=== PATIENT | male | born 1960 | race Caucasian/White ===

== ENCOUNTER 2023-03-23 10:13 | Inpatient (IN) | payer OTHER ==
[~2023-03-23] VITALS: Ht 172.7 cm; Wt 77.3 kg
[2023-03-23] MEDS ORDERED: METF-446 PO (10:43)
[2023-03-23] MEDS ORDERED: LISI20TA24 PO (10:43)
[2023-03-23] MEDS ORDERED: INSLAN SQ (10:43)
[2023-03-23] MEDS ORDERED: TRAZ-257 PO (10:43)
[2023-03-23] MEDS ORDERED: BACL10TA PO (10:43)
[2023-03-23] MEDS ORDERED: GABA800T9 PO (10:43)
[2023-03-23] MEDS ORDERED: TIMO5DRO18 OU (10:43)
[2023-03-23] MEDS ORDERED: PIOG45TA64 PO (10:43)
[2023-03-23] MEDS ORDERED: SITA100 PO (10:43)
[2023-03-23] MEDS ORDERED: SIMV-43 PO (10:43)
[2023-03-23] MEDS ORDERED: ASPI-1444 PO (10:43)
[2023-03-23] MEDS ORDERED: VANCOMYCIN 1GM/WATER(PEG/NADA) 200 ML IV ONE (12:30)
[2023-03-23 12:48] LABS: BASOPHILS % (AUTO) 0.2 % (0.0-2.0); HEMATOCRIT 40.3 % (41-53); LYMPHOCYTES # (AUTO) 1.7 K/uL (1.0-4.8); MEAN CORPUSCULAR HEMOGLOBIN 25.4 pg (26.0-34.0); MEAN CORPUSCULAR HGB CONC 32.3 G/dL (31.0-37.0); MEAN CORPUSCULAR VOLUME 79 fL (80-100); MONOCYTES # (AUTO) 0.5 K/uL (0.1-1.0); MONOCYTES % (AUTO) 5.7 % (2.0-9.0); NEUTROPHILS # (AUTO) 5.9 K/uL (1.8-7.7); NEUTROPHILS % (AUTO) 72.1 % (40.0-70.0); PLATELET COUNT (AUTO) 263 K/uL (150-450); RED BLOOD CELL COUNT(AUTO) 5.11 MIL/uL (4.50-5.90); RED CELL DISTRIBUTION WIDTH 17.3 % (11.5-14.5)
[2023-03-23 12:55] LABS: ANION GAP 6 mmol/L (8-16); CARBON DIOXIDE 30 mmol/L (22-29); CHLORIDE 103 mmol/L (98-107); CREATININE 0.78 mg/dL (0.60-1.30); GLOMERULAR FILTR. RATE CALC > 60 mL/min (>60); GLUCOSE,RANDOM 148 mg/dL (70-110); POTASSIUM 3.3 mmol/L (3.5-5.1); SODIUM SERUM 139 mmol/L (136-145)
[2023-03-23 13:01] LABS: ALANINE AMINOTRANSFERASE 14 U/L (12-78); ALBUMIN 4.3 g/dL (3.4-5.0); ALKALINE PHOSPHATASE 130 U/L (46-116); ASPARTATE AMINOTRANSFERASE 16 U/L (15-37); BILIRUBIN,TOTAL 0.6 mg/dL (0.1-1.0); C-REACTIVE PROTEIN QUANT 0.29 mg/dL (0.00-0.30); LIPASE 40 U/L (73-393); TOTAL PROTEIN, SERUM 8.8 g/dL (6.4-8.2)
[2023-03-23 13:04] LABS: LACTIC ACID 0.8 mmol/L (0.4-2.0)
[2023-03-23] MEDS ORDERED: POTASSIUM CHLORIDE 10% 40 MEQ/30 ML LIQUID UDCUP PO ONE (13:15)
[2023-03-23 13:22] LABS: COVID AG,FIA SOURCE NASOPHARYNGEAL
[2023-03-23] MEDS ORDERED: ONDANSETRON HCL 4 MG/2 ML VIAL IVP PRN (14:00)
[2023-03-23] MEDS ORDERED: CloNIDine HCL 0.1 MG TABLET PO PRN (14:00)
[2023-03-23] MEDS ORDERED: LISINOPRIL 10 MG TABLET PO SCH (14:00)
[2023-03-23] MEDS ORDERED: DEXTROSE 50%-WATER 25 GM/50 ML SYRINGE IVP PRN (14:00)
[2023-03-23] MEDS ORDERED: GADOTERATE MEGLUMINE 10 MMOL/20 ML VIAL IVP ONE (14:03)
[2023-03-23] MEDS ORDERED: POTASSIUM CHL 10 MEQ/WATER 50 ML IV PRN (14:15)
[2023-03-23] MEDS ORDERED: POTASSIUM CHLORIDE 20 MEQ ER TABLET PO PRN (14:15)
[2023-03-23] MEDS: AmLODIPine BESYLATE 5 MG TABLET PO SCH (14:36)
[2023-03-23 15:28] LABS: ERYTHROCYTE SEDIMENTATION RATE 15 MM/HR (0-15)
[2023-03-23] MEDS: VANCOMYCIN 1GM/WATER(PEG/NADA) 200 ML IV SCH ×2 (16:14→23:52)
[2023-03-23 20:44] VITALS: BP 148/73
[2023-03-23] MEDS: DOCUSATE SODIUM 100 MG CAPSULE PO SCH (21:00)
[2023-03-23] MEDS: INSULIN LISPRO 100 UNITS/ML SQ PRN (21:05)
[2023-03-23] MEDS ORDERED: SODIUM CHLORIDE 0.9% 500 ML IV ONE (23:44)
[2023-03-24 01:21] LABS: GLUCOMETER DEV NAME(LOC) 6N.2B; GLUCOSE,POINT OF CARE 238 MG/DL (70-110)
[2023-03-24 04:56] VITALS: BP 140/71
[2023-03-24] MEDS ORDERED: RINGERS SOLUTION,LACTATED 1,000 ML IV ONE ×2 (06:15→07:00)
[2023-03-24] MEDS ORDERED: BUPIVACAINE HCL/PF 0.25% 30 ML VIAL ONE (07:14)
[2023-03-24] MEDS ORDERED: LIDOCAINE/PF 1% 30 ML VIAL ONE (07:14)
[2023-03-24] MEDS ORDERED: HYDROmorphone HCL 2 MG/ML SYRINGE IVP PRN (07:30)
[2023-03-24] MEDS ORDERED: FentaNYL CITRATE PF 100 MCG/2 ML VIAL IVP PRN (07:30)
[2023-03-24] MEDS ORDERED: MEPERIDINE-PF 25 MG/ML VIAL IVP PRN (07:30)
[2023-03-24 07:41] LABS: GLUCOMETER DEV NAME(LOC) SDS.; GLUCOSE,POINT OF CARE 121 MG/DL (70-110)
[2023-03-24 07:56] LABS: APPEARANCE,URINE CLEAR (CLEAR); BILIRUBIN,URINE NEGATIVE (NEGATIVE); GLUCOSE, URINE (UA) 150-200 mg/dL (NEGATIVE); KETONES,URINE NEGATIVE (NEGATIVE); LEUKOCYTE ESTERASE ,URINE NEGATIVE (NEGATIVE); NITRATE,URINE NEGATIVE (NEGATIVE); OCCULT BLOOD,URINE NEGATIVE (NEGATIVE); PH,URINE 6.5 (5.0-8.0); PROTEIN,URINE TRACE mg/dL (NEGATIVE); SPECIFIC GRAVITIY, URINE 1.024 (1.003-1.030); UROBILINOGEN,URINE <=1.0 mg/dL (<=1.0)
[2023-03-24] MEDS: OXYGEN THERAPY IH SCH ×2 (08:00→21:43)
[2023-03-24 08:23] LABS: BACTERIA,URINE None Seen /HPF (None Seen); RBC,URINE None Seen /HPF (0-2); WBC,URINE None Seen /HPF (0-5)
[2023-03-24] MEDS: LISINOPRIL 20 MG TABLET PO SCH (08:35)
[2023-03-24] MEDS: VANCOMYCIN 1GM/WATER(PEG/NADA) 200 ML IV SCH ×3 (08:57→23:19)
[2023-03-24] MEDS: AmLODIPine BESYLATE 5 MG TABLET PO SCH (08:58)
[2023-03-24] MEDS: ATORVASTATIN CALCIUM 20 MG TABLET PO SCH (08:58)
[2023-03-24] MEDS: DOCUSATE SODIUM 100 MG CAPSULE PO SCH ×2 (08:58→21:43)
[2023-03-24] MEDS: FAMOTIDINE 20 MG TABLET PO SCH (08:58)
[2023-03-24] MEDS ORDERED: ASPIRIN 81 MG CHEWABLE TABLET PO SCH (09:00)
[2023-03-24] MEDS ORDERED: SODIUM CHLORIDE 0.9% 250 ML IV ONE (09:00)
[2023-03-24] MEDS: MetFORMIN HCL 500 MG TABLET PO SCH ×2 (09:01→21:42)
[2023-03-24] MEDS: PIOGLITAZONE HCL 45 MG TABLET PO SCH (09:12)
[2023-03-24] MEDS: SitaGLIPtin PHOSPHATE 100 MG TABLET PO SCH (09:12)
[2023-03-24] MEDS: BACLOFEN 10 MG TABLET PO SCH ×2 (09:13→21:43)
[2023-03-24] MEDS: ASPIRIN 81 MG DR TABLET PO SCH (09:15)
[2023-03-24 10:44] LABS: ANION GAP 4 mmol/L (8-16); CALCIUM, TOTAL 8.6 mg/dL (8.8-10.5); CARBON DIOXIDE 29 mmol/L (22-29); CHLORIDE 106 mmol/L (98-107); CREATININE 0.75 mg/dL (0.60-1.30); GLOMERULAR FILTR. RATE CALC > 60 mL/min (>60); GLUCOSE,RANDOM 191 mg/dL (70-110); POTASSIUM 3.8 mmol/L (3.5-5.1); SODIUM SERUM 139 mmol/L (136-145)
[2023-03-24] MEDS ORDERED: PROPOFOL 1% 20 ML VIAL IVP ONE (12:00)
[2023-03-24] MEDS ORDERED: LIDOCAINE/PF 2% 5 ML VIAL IM ONE (12:00)
[2023-03-24] MEDS: INSULIN LISPRO 100 UNITS/ML SQ PRN ×2 (12:21→21:48)
[2023-03-24 13:22] LABS: GLUCOMETER DEV NAME(LOC) 6N.1; GLUCOSE,POINT OF CARE 177 MG/DL (70-110)
[2023-03-24 15:39] VITALS: BP 171/81
[2023-03-24] MEDS: MORPHINE SULFATE 2 MG/ML SYRINGE IVP PRN (18:18)
[2023-03-24 18:31] LABS: GLUCOMETER DEV NAME(LOC) 6N.2B; GLUCOSE,POINT OF CARE 115 MG/DL (70-110)
[2023-03-24 19:57] VITALS: BP 134/67
[2023-03-24] MEDS: TraZODone HCL 100 MG TABLET PO SCH (21:42)
[2023-03-24] MEDS: SIMVASTATIN 20 MG TABLET PO SCH (21:42)
[2023-03-25 01:06] LABS: GLUCOMETER DEV NAME(LOC) 6N.1; GLUCOSE,POINT OF CARE 147 MG/DL (70-110)
[2023-03-25] MEDS: OxyCODONE HCL/ACETAMINOPHEN 5-325 MG TABLET PO PRN (03:59)
[2023-03-25 04:25] VITALS: BP 137/88
[2023-03-25 06:46] LABS: GLUCOMETER DEV NAME(LOC) 6N.1; GLUCOSE,POINT OF CARE 131 MG/DL (70-110)
[2023-03-25 07:17] LABS: ANION GAP 8 mmol/L (8-16); CALCIUM, TOTAL 8.8 mg/dL (8.8-10.5); CARBON DIOXIDE 28 mmol/L (22-29); CHLORIDE 105 mmol/L (98-107); CREATININE 0.89 mg/dL (0.60-1.30); GLOMERULAR FILTR. RATE CALC > 60 mL/min (>60); GLUCOSE,RANDOM 130 mg/dL (70-110); POTASSIUM 4.7 mmol/L (3.5-5.1); SODIUM SERUM 141 mmol/L (136-145); VANCOMYCIN,RANDOM 39.1 mcg/mL (25.0-50.0)
[2023-03-25 07:59] VITALS: BP 151/75
[2023-03-25] MEDS: OXYGEN THERAPY IH SCH ×2 (08:00→20:58)
[2023-03-25] MEDS: MORPHINE SULFATE 2 MG/ML SYRINGE IVP PRN (09:50)
[2023-03-25] MEDS: MetFORMIN HCL 500 MG TABLET PO SCH ×2 (09:51→20:58)
[2023-03-25] MEDS: PIOGLITAZONE HCL 45 MG TABLET PO SCH (09:52)
[2023-03-25] MEDS: LISINOPRIL 20 MG TABLET PO SCH (09:52)
[2023-03-25] MEDS: DOCUSATE SODIUM 100 MG CAPSULE PO SCH ×2 (09:53→20:58)
[2023-03-25] MEDS: ATORVASTATIN CALCIUM 20 MG TABLET PO SCH (09:53)
[2023-03-25] MEDS: FAMOTIDINE 20 MG TABLET PO SCH (09:54)
[2023-03-25] MEDS: ASPIRIN 81 MG DR TABLET PO SCH (09:54)
[2023-03-25] MEDS: AmLODIPine BESYLATE 5 MG TABLET PO SCH (09:55)
[2023-03-25] MEDS: BACLOFEN 10 MG TABLET PO SCH ×2 (09:55→20:58)
[2023-03-25] MEDS: SitaGLIPtin PHOSPHATE 100 MG TABLET PO SCH (09:56)
[2023-03-25] MEDS ORDERED: MIDAZOLAM HCL 2 MG/2 ML VIAL IVP ONE (12:00)
[2023-03-25] MEDS ORDERED: FentaNYL CITRATE PF 100 MCG/2 ML VIAL IVP ONE (12:00)
[2023-03-25] MEDS: INSULIN LISPRO 100 UNITS/ML SQ PRN (12:20)
[2023-03-25 12:51] LABS: GLUCOMETER DEV NAME(LOC) 6N.2B; GLUCOSE,POINT OF CARE 175 MG/DL (70-110)
[2023-03-25 15:53] VITALS: BP 133/62
[2023-03-25 20:01] LABS: GLUCOMETER DEV NAME(LOC) 6N.1; GLUCOSE,POINT OF CARE 108 MG/DL (70-110)
[2023-03-25 20:08] VITALS: BP 148/67
[2023-03-25] MEDS: VANCOMYCIN 1GM/WATER(PEG/NADA) 200 ML IV SCH (20:58)
[2023-03-25] MEDS: TraZODone HCL 100 MG TABLET PO SCH (20:58)
[2023-03-25] MEDS: SIMVASTATIN 20 MG TABLET PO SCH (20:58)
[2023-03-25 23:51] LABS: GLUCOMETER DEV NAME(LOC) 6N.1; GLUCOSE,POINT OF CARE 110 MG/DL (70-110)
[2023-03-26 04:00] VITALS: BP 138/67
[2023-03-26 07:20] LABS: ANION GAP 8 mmol/L (8-16); CALCIUM, TOTAL 8.5 mg/dL (8.8-10.5); CARBON DIOXIDE 26 mmol/L (22-29); CHLORIDE 101 mmol/L (98-107); GLOMERULAR FILTR. RATE CALC > 60 mL/min (>60); GLUCOSE,RANDOM 117 mg/dL (70-110); POTASSIUM 3.6 mmol/L (3.5-5.1); SODIUM SERUM 135 mmol/L (136-145)
[2023-03-26 07:49] VITALS: BP 145/73
[2023-03-26] MEDS: OXYGEN THERAPY IH SCH ×2 (07:50→20:00)
[2023-03-26] MEDS: VANCOMYCIN 1GM/WATER(PEG/NADA) 200 ML IV SCH ×2 (08:05→19:55)
[2023-03-26] MEDS: MetFORMIN HCL 500 MG TABLET PO SCH ×2 (08:05→20:15)
[2023-03-26] MEDS: SitaGLIPtin PHOSPHATE 100 MG TABLET PO SCH (08:05)
[2023-03-26] MEDS: AmLODIPine BESYLATE 5 MG TABLET PO SCH (08:06)
[2023-03-26] MEDS: ASPIRIN 81 MG DR TABLET PO SCH (08:06)
[2023-03-26] MEDS: ATORVASTATIN CALCIUM 20 MG TABLET PO SCH (08:07)
[2023-03-26] MEDS: DOCUSATE SODIUM 100 MG CAPSULE PO SCH ×2 (08:08→20:15)
[2023-03-26] MEDS: PIOGLITAZONE HCL 45 MG TABLET PO SCH (08:08)
[2023-03-26] MEDS: FAMOTIDINE 20 MG TABLET PO SCH (08:08)
[2023-03-26] MEDS: BACLOFEN 10 MG TABLET PO SCH ×2 (08:09→20:16)
[2023-03-26] MEDS: LISINOPRIL 20 MG TABLET PO SCH (08:09)
[2023-03-26 12:11] LABS: GLUCOMETER DEV NAME(LOC) 6N.2B; GLUCOSE,POINT OF CARE 137 MG/DL (70-110)
[2023-03-26 12:11] LABS: GLUCOMETER DEV NAME(LOC) 6N.1; GLUCOSE,POINT OF CARE 112 MG/DL (70-110)
[2023-03-26 15:22] VITALS: BP 120/63
[2023-03-26] MEDS: INSULIN LISPRO 100 UNITS/ML SQ PRN (17:24)
[2023-03-26] MEDS: CefTRIAXone SODIUM 2 GM in DEXTROSE 5%-WATER 50 ML IV SCH (18:34)
[2023-03-26 20:13] VITALS: BP 141/72
[2023-03-26] MEDS: TraZODone HCL 100 MG TABLET PO SCH (20:15)
[2023-03-26] MEDS: SIMVASTATIN 20 MG TABLET PO SCH (20:16)
[2023-03-26 21:41] LABS: GLUCOMETER DEV NAME(LOC) 6N.2B; GLUCOSE,POINT OF CARE 162 MG/DL (70-110)
[2023-03-26] MEDS: ACETAMINOPHEN 325 MG TABLET PO PRN (22:31)
[2023-03-26] MEDS: MetroNIDAZOLE 500 MG TABLET PO SCH (23:57)
[2023-03-27 04:09] VITALS: BP 141/75
[2023-03-27 05:56] LABS: GLUCOMETER DEV NAME(LOC) 6N.1; GLUCOSE,POINT OF CARE 117 MG/DL (70-110)
[2023-03-27 07:31] VITALS: BP 158/78
[2023-03-27 07:31] LABS: GLUCOMETER DEV NAME(LOC) 6N.1; GLUCOSE,POINT OF CARE 139 MG/DL (70-110)
[2023-03-27 07:51] LABS: ANION GAP 9 mmol/L (8-16); CALCIUM, TOTAL 8.6 mg/dL (8.8-10.5); CARBON DIOXIDE 24 mmol/L (22-29); CHLORIDE 102 mmol/L (98-107); CREATININE 0.78 mg/dL (0.60-1.30); GLOMERULAR FILTR. RATE CALC > 60 mL/min (>60); GLUCOSE,RANDOM 139 mg/dL (70-110); POTASSIUM 3.7 mmol/L (3.5-5.1); SODIUM SERUM 135 mmol/L (136-145); VANCOMYCIN,RANDOM 11.5 mcg/mL (25.0-50.0)
[2023-03-27] MEDS: MetroNIDAZOLE 500 MG TABLET PO SCH ×3 (07:59→16:19)
[2023-03-27] MEDS: VANCOMYCIN 1GM/WATER(PEG/NADA) 200 ML IV SCH ×2 (07:59→08:56)
[2023-03-27] MEDS: OXYGEN THERAPY IH SCH (08:00)
[2023-03-27] MEDS: PIOGLITAZONE HCL 45 MG TABLET PO SCH (09:04)
[2023-03-27] MEDS: FAMOTIDINE 20 MG TABLET PO SCH (09:04)
[2023-03-27] MEDS: ATORVASTATIN CALCIUM 20 MG TABLET PO SCH (09:04)
[2023-03-27] MEDS: ASPIRIN 81 MG DR TABLET PO SCH (09:04)
[2023-03-27] MEDS: AmLODIPine BESYLATE 5 MG TABLET PO SCH ×3 (09:05→20:46)
[2023-03-27] MEDS: DOCUSATE SODIUM 100 MG CAPSULE PO SCH ×2 (09:05→20:43)
[2023-03-27] MEDS: BACLOFEN 10 MG TABLET PO SCH ×2 (09:05→20:43)
[2023-03-27] MEDS: SitaGLIPtin PHOSPHATE 100 MG TABLET PO SCH (09:06)
[2023-03-27] MEDS: MetFORMIN HCL 500 MG TABLET PO SCH ×2 (09:06→20:43)
[2023-03-27] MEDS: LISINOPRIL 20 MG TABLET PO SCH (09:10)
[2023-03-27 12:06] LABS: GLUCOMETER DEV NAME(LOC) 6N.1; GLUCOSE,POINT OF CARE 130 MG/DL (70-110)
[2023-03-27 15:45] LABS: COVID AG,FIA SOURCE NASAL SWAB
[2023-03-27 16:03] VITALS: BP 130/72
[2023-03-27] MEDS: CefTRIAXone SODIUM 2 GM in DEXTROSE 5%-WATER 50 ML IV SCH (17:07)
[2023-03-27] MEDS: INSULIN LISPRO 100 UNITS/ML SQ PRN (17:26)
[2023-03-27 17:41] LABS: GLUCOMETER DEV NAME(LOC) 6N.1; GLUCOSE,POINT OF CARE 147 MG/DL (70-110)
[2023-03-27 19:10] VITALS: BP 109/64
[2023-03-27] MEDS: TraZODone HCL 100 MG TABLET PO SCH (20:43)
[2023-03-27] MEDS: ACETAMINOPHEN 325 MG TABLET PO PRN (20:44)
[2023-03-27] MEDS: VANCOMYCIN HCL 1.25 GM in DEXTROSE 5%-WATER 250 ML IV SCH (20:53)
[2023-03-28] VITALS (11 sets, daily range): BP systolic 112–183; BP diastolic 61–89
[2023-03-28] MEDS: MetroNIDAZOLE 500 MG TABLET PO SCH ×4 (02:50→23:26)
[2023-03-28 03:11] LABS: GLUCOMETER DEV NAME(LOC) 6N.2B; GLUCOSE,POINT OF CARE 125 MG/DL (70-110)
[2023-03-28 06:30] LABS: BASOPHILS % (AUTO) 0.3 % (0.0-2.0); EOSINOPHILS % (AUTO) 0.5 % (1.0-6.0); HEMATOCRIT 37.2 % (41-53); HEMOGLOBIN 12.1 g/dL (13.5-17.5); LYMPHOCYTES % (AUTO) 21.8 % (22.0-44.0); MEAN CORPUSCULAR HEMOGLOBIN 25.6 pg (26.0-34.0); MEAN CORPUSCULAR HGB CONC 32.5 G/dL (31.0-37.0); MEAN CORPUSCULAR VOLUME 79 fL (80-100); MONOCYTES # (AUTO) 0.9 K/uL (0.1-1.0); NEUTROPHILS # (AUTO) 6.3 K/uL (1.8-7.7); NEUTROPHILS % (AUTO) 67.4 % (40.0-70.0); PLATELET COUNT (AUTO) 222 K/uL (150-450); RED BLOOD CELL COUNT(AUTO) 4.72 MIL/uL (4.50-5.90); RED CELL DISTRIBUTION WIDTH 17.6 % (11.5-14.5)
[2023-03-28 06:54] LABS: ANION GAP 12 mmol/L (8-16); CALCIUM, TOTAL 8.3 mg/dL (8.8-10.5); CARBON DIOXIDE 23 mmol/L (22-29); CHLORIDE 102 mmol/L (98-107); CREATININE 1.04 mg/dL (0.60-1.30); GLOMERULAR FILTR. RATE CALC > 60 mL/min (>60); GLUCOSE,RANDOM 147 mg/dL (70-110); POTASSIUM 3.8 mmol/L (3.5-5.1); SODIUM SERUM 137 mmol/L (136-145)
[2023-03-28] MEDS: OXYGEN THERAPY IH SCH ×2 (08:00→20:51)
[2023-03-28] MEDS: ATORVASTATIN CALCIUM 40 MG TABLET PO SCH (08:12)
[2023-03-28] MEDS: VANCOMYCIN HCL 1.25 GM in DEXTROSE 5%-WATER 250 ML IV SCH ×2 (08:14→20:43)
[2023-03-28] MEDS: AmLODIPine BESYLATE 5 MG TABLET PO SCH ×2 (08:48→20:43)
[2023-03-28] MEDS: DOCUSATE SODIUM 100 MG CAPSULE PO SCH ×2 (08:49→20:51)
[2023-03-28] MEDS: LISINOPRIL 20 MG TABLET PO SCH (08:49)
[2023-03-28] MEDS: FAMOTIDINE 20 MG TABLET PO SCH (08:50)
[2023-03-28] MEDS: PIOGLITAZONE HCL 45 MG TABLET PO SCH (09:00)
[2023-03-28] MEDS: BACLOFEN 10 MG TABLET PO SCH ×2 (09:00→20:45)
[2023-03-28] MEDS: SitaGLIPtin PHOSPHATE 100 MG TABLET PO SCH (09:00)
[2023-03-28] MEDS: MetFORMIN HCL 500 MG TABLET PO SCH ×2 (09:00→20:43)
[2023-03-28] MEDS: ASPIRIN 81 MG DR TABLET PO SCH (09:00)
[2023-03-28 11:01] LABS: GLUCOMETER DEV NAME(LOC) 6N.1; GLUCOSE,POINT OF CARE 142 MG/DL (70-110)
[2023-03-28] MEDS: INSULIN LISPRO 100 UNITS/ML SQ PRN ×2 (11:42→21:06)
[2023-03-28] MEDS ORDERED: IODIXANOL 320 MG/ML 150 ML VIAL ONE (13:56)
[2023-03-28] MEDS ORDERED: LIDOCAINE/PF 1% 30 ML VIAL ONE (13:56)
[2023-03-28] MEDS ORDERED: HEPARIN SODIUM 1000 UNITS/NS 1,000 ML ONE (13:56)
[2023-03-28] MEDS ORDERED: IODIXANOL 320 MG/ML 50 ML VIAL ONE (13:56)
[2023-03-28] MEDS ORDERED: SODIUM BICARBONATE 50 MEQ/50 ML VIAL ONE (13:56)
[2023-03-28] MEDS ORDERED: IODIXANOL 320 MG/ML 100 ML VIAL ONE (13:56)
[2023-03-28] MEDS ORDERED: MIDAZOLAM HCL 2 MG/2 ML VIAL ONE (15:05)
[2023-03-28] MEDS ORDERED: FentaNYL CITRATE PF 100 MCG/2 ML VIAL ONE (15:05)
[2023-03-28] MEDS ORDERED: LIDOCAINE 1% 30 ML/SOD BICARB 8.4% 4 ML SQ ONE (15:30)
[2023-03-28] MEDS ORDERED: HEPARIN SODIUM 1000 UNITS/NS 1,000 ML IARTER ONE (15:30)
[2023-03-28] MEDS ORDERED: FentaNYL CITRATE PF 100 MCG/2 ML VIAL IVP ONE ×2 (15:30→16:30)
[2023-03-28] MEDS ORDERED: MIDAZOLAM HCL 2 MG/2 ML VIAL IVP ONE ×2 (15:30→16:30)
[2023-03-28] MEDS ORDERED: IODIXANOL 320 MG/ML 150 ML VIAL IARTER ONE (15:30)
[2023-03-28] MEDS ORDERED: HEPARIN SODIUM,PORCINE 1,000 UNITS/ML 10 ML VIAL IVP ONE ×3 (16:30→17:45)
[2023-03-28] MEDS ORDERED: CLOPIDOGREL BISULFATE 75 MG TABLET PO ONE (17:45)
[2023-03-28] MEDS ORDERED: HEPARIN SODIUM,PORCINE 5,000 UNITS/ML VIAL IVP PRN ×2 (18:00)
[2023-03-28 18:27] LABS: GLUCOMETER DEV NAME(LOC) 6N.1; GLUCOSE,POINT OF CARE 146 MG/DL (70-110)
[2023-03-28] MEDS: CefTRIAXone SODIUM 2 GM in DEXTROSE 5%-WATER 50 ML IV SCH (18:49)
[2023-03-28 19:03] LABS: BASOPHILS % (AUTO) 0.3 % (0.0-2.0); EOSINOPHILS % (AUTO) 0.2 % (1.0-6.0); HEMATOCRIT 39.4 % (41-53); HEMOGLOBIN 12.4 g/dL (13.5-17.5); LYMPHOCYTES # (AUTO) 1.8 K/uL (1.0-4.8); LYMPHOCYTES % (AUTO) 15.4 % (22.0-44.0); MEAN CORPUSCULAR HEMOGLOBIN 24.7 pg (26.0-34.0); MEAN CORPUSCULAR HGB CONC 31.6 G/dL (31.0-37.0); MEAN CORPUSCULAR VOLUME 78 fL (80-100); MONOCYTES # (AUTO) 1.1 K/uL (0.1-1.0); MONOCYTES % (AUTO) 8.9 % (2.0-9.0); NEUTROPHILS # (AUTO) 8.9 K/uL (1.8-7.7); NEUTROPHILS % (AUTO) 75.2 % (40.0-70.0); PLATELET COUNT (AUTO) 237 K/uL (150-450); RED BLOOD CELL COUNT(AUTO) 5.03 MIL/uL (4.50-5.90); RED CELL DISTRIBUTION WIDTH 17.3 % (11.5-14.5)
[2023-03-28 19:39] LABS: INR 1.1 (0.9-1.1); PROTHROMBIN TIME 12.1 SEC (9.4-11.6)
[2023-03-28] MEDS ORDERED: SODIUM CHLORIDE 0.9% 0 ML IV ONE (20:22)
[2023-03-28 20:27] LABS: GLUCOMETER DEV NAME(LOC) 6N.1; GLUCOSE,POINT OF CARE 119 MG/DL (70-110)
[2023-03-28] MEDS: TraZODone HCL 100 MG TABLET PO SCH (20:43)
[2023-03-28] MEDS: OxyCODONE HCL/ACETAMINOPHEN 5-325 MG TABLET PO PRN (20:52)
[2023-03-28] MEDS: MORPHINE SULFATE 2 MG/ML SYRINGE IVP PRN (21:59)
[2023-03-28] MEDS ORDERED: SODIUM CHLORIDE 0.9% 1,000 ML IV ONE (22:00)
[2023-03-28] MEDS: HEPARIN SODIUM 25000 UNITS/D5W 250 ML IV PRN (22:00)
[2023-03-29 01:01] VITALS: BP 126/62
[2023-03-29 02:16] LABS: GLUCOMETER DEV NAME(LOC) 6N.2B; GLUCOSE,POINT OF CARE 146 MG/DL (70-110)
[2023-03-29 03:35] VITALS: BP 129/67
[2023-03-29] MEDS: HEPARIN SODIUM 25000 UNITS/D5W 250 ML IV PRN (04:12)
[2023-03-29 06:44] LABS: BASOPHILS % (AUTO) 0.2 % (0.0-2.0); EOSINOPHILS % (AUTO) 0.2 % (1.0-6.0); HEMATOCRIT 37.1 % (41-53); HEMOGLOBIN 11.8 g/dL (13.5-17.5); LYMPHOCYTES # (AUTO) 1.9 K/uL (1.0-4.8); LYMPHOCYTES % (AUTO) 19.8 % (22.0-44.0); MEAN CORPUSCULAR HEMOGLOBIN 25.1 pg (26.0-34.0); MEAN CORPUSCULAR HGB CONC 31.9 G/dL (31.0-37.0); MEAN CORPUSCULAR VOLUME 79 fL (80-100); MONOCYTES % (AUTO) 10.7 % (2.0-9.0); NEUTROPHILS # (AUTO) 6.6 K/uL (1.8-7.7); NEUTROPHILS % (AUTO) 69.1 % (40.0-70.0); PLATELET COUNT (AUTO) 225 K/uL (150-450); RED BLOOD CELL COUNT(AUTO) 4.71 MIL/uL (4.50-5.90); RED CELL DISTRIBUTION WIDTH 16.9 % (11.5-14.5)
[2023-03-29 06:50] LABS: ANION GAP 7 mmol/L (8-16); CALCIUM, TOTAL 8.8 mg/dL (8.8-10.5); CARBON DIOXIDE 28 mmol/L (22-29); CHLORIDE 102 mmol/L (98-107); CREATININE 0.83 mg/dL (0.60-1.30); GLOMERULAR FILTR. RATE CALC > 60 mL/min (>60); GLUCOSE,RANDOM 140 mg/dL (70-110); POTASSIUM 4.9 mmol/L (3.5-5.1); SODIUM SERUM 137 mmol/L (136-145); VANCOMYCIN,RANDOM 19.6 mcg/mL (25.0-50.0)
[2023-03-29 07:11] LABS: GLUCOMETER DEV NAME(LOC) 6N.1; GLUCOSE,POINT OF CARE 130 MG/DL (70-110)
[2023-03-29] MEDS ORDERED: LIDOCAINE/PF 1% 30 ML VIAL ONE (07:40)
[2023-03-29] MEDS ORDERED: IODIXANOL 320 MG/ML 100 ML VIAL ONE (07:40)
[2023-03-29] MEDS ORDERED: HEPARIN SODIUM 1000 UNITS/NS 1,000 ML ONE (07:40)
[2023-03-29] MEDS ORDERED: SODIUM BICARBONATE 50 MEQ/50 ML VIAL ONE (07:40)
[2023-03-29] MEDS: OXYGEN THERAPY IH SCH (08:00)
[2023-03-29] MEDS: MetroNIDAZOLE 500 MG TABLET PO SCH ×2 (08:00→18:28)
[2023-03-29] MEDS: VANCOMYCIN HCL 1.25 GM in DEXTROSE 5%-WATER 250 ML IV SCH ×2 (08:00→20:10)
[2023-03-29 08:05] VITALS: BP 143/67
[2023-03-29] MEDS ORDERED: FentaNYL CITRATE PF 100 MCG/2 ML VIAL ONE (08:07)
[2023-03-29] MEDS ORDERED: MIDAZOLAM HCL 2 MG/2 ML VIAL ONE (08:07)
[2023-03-29] MEDS ORDERED: HEPARIN SODIUM 1000 UNITS/NS 1,000 ML IARTER ONE (08:30)
[2023-03-29] MEDS ORDERED: IODIXANOL 320 MG/ML 100 ML VIAL IARTER ONE (08:30)
[2023-03-29] MEDS ORDERED: LIDOCAINE 1% 30 ML/SOD BICARB 8.4% 4 ML SQ ONE (08:30)
[2023-03-29] MEDS ORDERED: SODIUM CHLORIDE 0.9% 500 ML IV ONE (08:30)
[2023-03-29] MEDS ORDERED: NITROGLYCERIN 50 MG/D5% WATER 250 ML ONE (08:42)
[2023-03-29] MEDS ORDERED: ADENOSINE 3 MG/ML 2 ML VIAL ONE (08:42)
[2023-03-29] MEDS: BACLOFEN 10 MG TABLET PO SCH ×2 (09:00→20:02)
[2023-03-29] MEDS: AmLODIPine BESYLATE 5 MG TABLET PO SCH ×2 (09:00→20:02)
[2023-03-29] MEDS: DOCUSATE SODIUM 100 MG CAPSULE PO SCH ×2 (09:00→20:01)
[2023-03-29] MEDS ORDERED: HEPARIN SODIUM,PORCINE 1,000 UNITS/ML 10 ML VIAL IVP ONE ×2 (09:00→11:00)
[2023-03-29] MEDS: MetFORMIN HCL 500 MG TABLET PO SCH ×2 (09:00→20:02)
[2023-03-29] MEDS ORDERED: NITROGLYCERIN/D5W 50 MG/250 ML IV BOTTLE IARTER ONE ×2 (09:30)
[2023-03-29] MEDS ORDERED: ADENOSINE 3 MG/ML 2 ML VIAL IVP ONE ×2 (09:30)
[2023-03-29] MEDS ORDERED: ALTEPLASE 2 MG VIAL IVCATH ONE (09:30)
[2023-03-29 10:50] VITALS: BP 137/75
[2023-03-29] MEDS ORDERED: CLOPIDOGREL BISULFATE 75 MG TABLET ONE (10:52)
[2023-03-29] MEDS: CLOPIDOGREL BISULFATE 75 MG TABLET PO SCH (10:53)
[2023-03-29 12:11] LABS: GLUCOMETER DEV NAME(LOC) 6N.2B; GLUCOSE,POINT OF CARE 145 MG/DL (70-110)
[2023-03-29] MEDS: MORPHINE SULFATE 2 MG/ML SYRINGE IVP PRN (15:28)
[2023-03-29] MEDS: ATORVASTATIN CALCIUM 40 MG TABLET PO SCH (15:28)
[2023-03-29] MEDS: FAMOTIDINE 20 MG TABLET PO SCH (15:28)
[2023-03-29] MEDS: SitaGLIPtin PHOSPHATE 100 MG TABLET PO SCH (15:29)
[2023-03-29] MEDS: ASPIRIN 81 MG DR TABLET PO SCH (15:29)
[2023-03-29 15:30] VITALS: BP 158/79
[2023-03-29] MEDS: LISINOPRIL 20 MG TABLET PO SCH (15:30)
[2023-03-29] MEDS: PIOGLITAZONE HCL 45 MG TABLET PO SCH (15:31)
[2023-03-29] MEDS: CefTRIAXone SODIUM 2 GM in DEXTROSE 5%-WATER 50 ML IV SCH (16:58)
[2023-03-29] MEDS: INSULIN LISPRO 100 UNITS/ML SQ PRN (17:57)
[2023-03-29] MEDS: TraZODone HCL 100 MG TABLET PO SCH (20:01)
[2023-03-29] MEDS: OxyCODONE HCL/ACETAMINOPHEN 5-325 MG TABLET PO PRN (20:02)
[2023-03-29 20:05] VITALS: BP 120/66
[2023-03-29 21:26] LABS: GLUCOMETER DEV NAME(LOC) 6N.2B; GLUCOSE,POINT OF CARE 205 MG/DL (70-110)
[2023-03-29 21:27] LABS: GLUCOMETER DEV NAME(LOC) 6N.2B; GLUCOSE,POINT OF CARE 89 MG/DL (70-110)
[2023-03-30] MEDS: MetroNIDAZOLE 500 MG TABLET PO SCH ×4 (00:52→23:25)
[2023-03-30 05:05] VITALS: BP 120/70
[2023-03-30 07:20] LABS: BASOPHILS % (AUTO) 0.2 % (0.0-2.0); EOSINOPHILS % (AUTO) 0.4 % (1.0-6.0); HEMATOCRIT 37.5 % (41-53); LYMPHOCYTES # (AUTO) 1.4 K/uL (1.0-4.8); MEAN CORPUSCULAR HEMOGLOBIN 25.2 pg (26.0-34.0); MEAN CORPUSCULAR HGB CONC 32.1 G/dL (31.0-37.0); MEAN CORPUSCULAR VOLUME 79 fL (80-100); MONOCYTES # (AUTO) 1.1 K/uL (0.1-1.0); MONOCYTES % (AUTO) 9.6 % (2.0-9.0); NEUTROPHILS # (AUTO) 8.9 K/uL (1.8-7.7); NEUTROPHILS % (AUTO) 77.8 % (40.0-70.0); PLATELET COUNT (AUTO) 239 K/uL (150-450); RED BLOOD CELL COUNT(AUTO) 4.77 MIL/uL (4.50-5.90); RED CELL DISTRIBUTION WIDTH 17.6 % (11.5-14.5)
[2023-03-30 07:32] LABS: ALANINE AMINOTRANSFERASE 15 U/L (12-78); ALBUMIN 3.4 g/dL (3.4-5.0); ALKALINE PHOSPHATASE 84 U/L (46-116); ANION GAP 11 mmol/L (8-16); ASPARTATE AMINOTRANSFERASE 20 U/L (15-37); BILIRUBIN,TOTAL 0.5 mg/dL (0.1-1.0); CALCIUM, TOTAL 8.6 mg/dL (8.8-10.5); CARBON DIOXIDE 25 mmol/L (22-29); CHLORIDE 100 mmol/L (98-107); CREATININE 0.95 mg/dL (0.60-1.30); GLOMERULAR FILTR. RATE CALC > 60 mL/min (>60); GLUCOSE,RANDOM 146 mg/dL (70-110); POTASSIUM 4.3 mmol/L (3.5-5.1); SODIUM SERUM 136 mmol/L (136-145); TOTAL PROTEIN, SERUM 7.3 g/dL (6.4-8.2)
[2023-03-30] MEDS: OXYGEN THERAPY IH SCH (08:00)
[2023-03-30 08:03] VITALS: BP 116/57
[2023-03-30 08:11] LABS: GLUCOMETER DEV NAME(LOC) 6N.2B; GLUCOSE,POINT OF CARE 138 MG/DL (70-110)
[2023-03-30] MEDS: VANCOMYCIN HCL 1.25 GM in DEXTROSE 5%-WATER 250 ML IV SCH ×2 (08:15→20:00)
[2023-03-30] MEDS: MetFORMIN HCL 500 MG TABLET PO SCH ×2 (08:27→22:01)
[2023-03-30] MEDS: SitaGLIPtin PHOSPHATE 100 MG TABLET PO SCH (08:27)
[2023-03-30] MEDS: PIOGLITAZONE HCL 45 MG TABLET PO SCH (08:27)
[2023-03-30] MEDS: CLOPIDOGREL BISULFATE 75 MG TABLET PO SCH (08:28)
[2023-03-30] MEDS: FAMOTIDINE 20 MG TABLET PO SCH (08:28)
[2023-03-30] MEDS: AmLODIPine BESYLATE 5 MG TABLET PO SCH ×2 (08:28→22:01)
[2023-03-30] MEDS: ASPIRIN 81 MG DR TABLET PO SCH (08:28)
[2023-03-30] MEDS: DOCUSATE SODIUM 100 MG CAPSULE PO SCH ×2 (08:28→22:01)
[2023-03-30] MEDS: BACLOFEN 10 MG TABLET PO SCH ×2 (08:29→22:01)
[2023-03-30] MEDS: LISINOPRIL 20 MG TABLET PO SCH (08:30)
[2023-03-30] MEDS: ATORVASTATIN CALCIUM 40 MG TABLET PO SCH (08:30)
[2023-03-30] MEDS: INSULIN LISPRO 100 UNITS/ML SQ PRN ×2 (11:43→20:54)
[2023-03-30 12:36] LABS: GLUCOMETER DEV NAME(LOC) 6N.1; GLUCOSE,POINT OF CARE 194 MG/DL (70-110)
[2023-03-30 16:27] VITALS: BP 118/62
[2023-03-30] MEDS: CefTRIAXone SODIUM 2 GM in DEXTROSE 5%-WATER 50 ML IV SCH (16:39)
[2023-03-30 18:51] LABS: GLUCOMETER DEV NAME(LOC) 6N.2B; GLUCOSE,POINT OF CARE 132 MG/DL (70-110)
[2023-03-30 19:57] VITALS: BP 127/63
[2023-03-30] MEDS: TraZODone HCL 100 MG TABLET PO SCH (22:01)
[2023-03-31 04:12] VITALS: BP 103/61
[2023-03-31 05:01] LABS: GLUCOMETER DEV NAME(LOC) 6N.2B; GLUCOSE,POINT OF CARE 147 MG/DL (70-110)
[2023-03-31] MEDS: INSULIN LISPRO 100 UNITS/ML SQ PRN ×4 (05:29→21:22)
[2023-03-31 07:59] LABS: CALCIUM, TOTAL 8.1 mg/dL (8.8-10.5); CREATININE 1.25 mg/dL (0.60-1.30); POTASSIUM 3.6 mmol/L (3.5-5.1)
[2023-03-31] MEDS: OXYGEN THERAPY IH SCH ×2 (08:00→20:00)
[2023-03-31] MEDS: VANCOMYCIN HCL 1.25 GM in DEXTROSE 5%-WATER 250 ML IV SCH ×2 (08:04→19:54)
[2023-03-31 08:06] LABS: GLUCOMETER DEV NAME(LOC) 6N.1; GLUCOSE,POINT OF CARE 146 MG/DL (70-110)
[2023-03-31 08:09] VITALS: BP 107/54
[2023-03-31] MEDS: SitaGLIPtin PHOSPHATE 100 MG TABLET PO SCH (08:50)
[2023-03-31] MEDS: AmLODIPine BESYLATE 5 MG TABLET PO SCH ×2 (08:51→21:15)
[2023-03-31] MEDS: CLOPIDOGREL BISULFATE 75 MG TABLET PO SCH (08:51)
[2023-03-31] MEDS: BACLOFEN 10 MG TABLET PO SCH ×2 (08:51→21:15)
[2023-03-31] MEDS: MetroNIDAZOLE 500 MG TABLET PO SCH ×2 (08:51→16:51)
[2023-03-31] MEDS: PIOGLITAZONE HCL 45 MG TABLET PO SCH (08:51)
[2023-03-31] MEDS: MetFORMIN HCL 500 MG TABLET PO SCH ×2 (08:51→21:14)
[2023-03-31] MEDS: ASPIRIN 81 MG DR TABLET PO SCH (08:51)
[2023-03-31] MEDS: ATORVASTATIN CALCIUM 40 MG TABLET PO SCH (08:52)
[2023-03-31] MEDS: FAMOTIDINE 20 MG TABLET PO SCH (08:52)
[2023-03-31] MEDS: DOCUSATE SODIUM 100 MG CAPSULE PO SCH ×2 (08:52→21:15)
[2023-03-31] MEDS ORDERED: SODIUM CHLORIDE 0.9% 1,000 ML IV ONE (09:45)
[2023-03-31 12:42] LABS: GLUCOMETER DEV NAME(LOC) 6N.2B; GLUCOSE,POINT OF CARE 182 MG/DL (70-110)
[2023-03-31 15:27] VITALS: BP 112/77
[2023-03-31] MEDS: CefTRIAXone SODIUM 2 GM in DEXTROSE 5%-WATER 50 ML IV SCH (16:51)
[2023-03-31 20:26] LABS: GLUCOMETER DEV NAME(LOC) 6N.1; GLUCOSE,POINT OF CARE 177 MG/DL (70-110)
[2023-03-31 20:40] VITALS: BP 118/63
[2023-03-31] MEDS: LISINOPRIL 20 MG TABLET PO SCH (21:15)
[2023-03-31] MEDS: TraZODone HCL 100 MG TABLET PO SCH (21:15)
[2023-03-31 23:31] LABS: GLUCOMETER DEV NAME(LOC) 6N.1; GLUCOSE,POINT OF CARE 174 MG/DL (70-110)
[2023-04-01] MEDS: MetroNIDAZOLE 500 MG TABLET PO SCH ×3 (00:06→15:58)
[2023-04-01 05:16] VITALS: BP 128/57
[2023-04-01 06:57] LABS: GLUCOMETER DEV NAME(LOC) 6N.1; GLUCOSE,POINT OF CARE 139 MG/DL (70-110)
[2023-04-01 07:52] LABS: CALCIUM, TOTAL 8.3 mg/dL (8.8-10.5); CREATININE 1.28 mg/dL (0.60-1.30); POTASSIUM 3.6 mmol/L (3.5-5.1); VANCOMYCIN,RANDOM 25.8 mcg/mL (25.0-50.0)
[2023-04-01] MEDS: OXYGEN THERAPY IH SCH (08:00)
[2023-04-01] MEDS: MetFORMIN HCL 500 MG TABLET PO SCH ×2 (08:35→20:40)
[2023-04-01] MEDS: AmLODIPine BESYLATE 5 MG TABLET PO SCH ×2 (08:35→20:40)
[2023-04-01] MEDS: VANCOMYCIN HCL 1.25 GM in DEXTROSE 5%-WATER 250 ML IV SCH (08:35)
[2023-04-01] MEDS: ASPIRIN 81 MG DR TABLET PO SCH (08:36)
[2023-04-01] MEDS: FAMOTIDINE 20 MG TABLET PO SCH (08:36)
[2023-04-01] MEDS: PIOGLITAZONE HCL 45 MG TABLET PO SCH (08:36)
[2023-04-01] MEDS: SitaGLIPtin PHOSPHATE 100 MG TABLET PO SCH (08:36)
[2023-04-01] MEDS: ATORVASTATIN CALCIUM 40 MG TABLET PO SCH (08:36)
[2023-04-01] MEDS: BACLOFEN 10 MG TABLET PO SCH ×2 (08:37→20:39)
[2023-04-01] MEDS: DOCUSATE SODIUM 100 MG CAPSULE PO SCH ×2 (08:37→20:39)
[2023-04-01] MEDS: CLOPIDOGREL BISULFATE 75 MG TABLET PO SCH (08:37)
[2023-04-01 11:41] LABS: GLUCOMETER DEV NAME(LOC) 6N.1; GLUCOSE,POINT OF CARE 186 MG/DL (70-110)
[2023-04-01] MEDS: INSULIN LISPRO 100 UNITS/ML SQ PRN ×2 (11:54→17:41)
[2023-04-01] MEDS: OxyCODONE HCL/ACETAMINOPHEN 5-325 MG TABLET PO PRN (13:10)
[2023-04-01 15:42] VITALS: BP 99/64
[2023-04-01] MEDS: CefTRIAXone SODIUM 2 GM in DEXTROSE 5%-WATER 50 ML IV SCH (15:58)
[2023-04-01 17:01] LABS: GLUCOMETER DEV NAME(LOC) 6N.2B; GLUCOSE,POINT OF CARE 164 MG/DL (70-110)
[2023-04-01 19:21] VITALS: BP 123/68
[2023-04-01] MEDS: LISINOPRIL 20 MG TABLET PO SCH (20:39)
[2023-04-01] MEDS: TraZODone HCL 100 MG TABLET PO SCH (20:40)
[2023-04-02] MEDS: MetroNIDAZOLE 500 MG TABLET PO SCH ×3 (00:14→15:50)
[2023-04-02 00:51] LABS: GLUCOMETER DEV NAME(LOC) 6N.1; GLUCOSE,POINT OF CARE 104 MG/DL (70-110)
[2023-04-02 04:15] VITALS: BP 121/59
[2023-04-02] MEDS: INSULIN LISPRO 100 UNITS/ML SQ PRN ×2 (05:55→11:28)
[2023-04-02 06:16] LABS: GLUCOMETER DEV NAME(LOC) 6N.2B; GLUCOSE,POINT OF CARE 147 MG/DL (70-110)
[2023-04-02 07:53] LABS: BASOPHILS % (AUTO) 0.4 % (0.0-2.0); EOSINOPHILS % (AUTO) 0.9 % (1.0-6.0); HEMATOCRIT 32.1 % (41-53); HEMOGLOBIN 10.4 g/dL (13.5-17.5); LYMPHOCYTES # (AUTO) 1.5 K/uL (1.0-4.8); LYMPHOCYTES % (AUTO) 16.1 % (22.0-44.0); MEAN CORPUSCULAR HEMOGLOBIN 25.4 pg (26.0-34.0); MEAN CORPUSCULAR HGB CONC 32.6 G/dL (31.0-37.0); MEAN CORPUSCULAR VOLUME 78 fL (80-100); MONOCYTES # (AUTO) 0.8 K/uL (0.1-1.0); MONOCYTES % (AUTO) 9.2 % (2.0-9.0); NEUTROPHILS # (AUTO) 6.8 K/uL (1.8-7.7); NEUTROPHILS % (AUTO) 73.4 % (40.0-70.0); PLATELET COUNT (AUTO) 221 K/uL (150-450); RED BLOOD CELL COUNT(AUTO) 4.11 MIL/uL (4.50-5.90); RED CELL DISTRIBUTION WIDTH 17.9 % (11.5-14.5)
[2023-04-02] MEDS: OXYGEN THERAPY IH SCH ×2 (08:00→20:00)
[2023-04-02 08:04] LABS: CALCIUM, TOTAL 8.5 mg/dL (8.8-10.5); CREATININE 1.38 mg/dL (0.60-1.30); POTASSIUM 3.6 mmol/L (3.5-5.1)
[2023-04-02 08:15] VITALS: BP 100/60
[2023-04-02] MEDS: DOCUSATE SODIUM 100 MG CAPSULE PO SCH ×2 (08:20→20:20)
[2023-04-02] MEDS: MetFORMIN HCL 500 MG TABLET PO SCH ×2 (08:20→20:18)
[2023-04-02] MEDS: ATORVASTATIN CALCIUM 40 MG TABLET PO SCH (08:20)
[2023-04-02] MEDS: APIXABAN 5 MG TABLET PO SCH ×2 (08:21→20:20)
[2023-04-02] MEDS: PIOGLITAZONE HCL 45 MG TABLET PO SCH (08:21)
[2023-04-02] MEDS: VANCOMYCIN 1GM/WATER(PEG/NADA) 200 ML IV SCH ×2 (08:21→20:18)
[2023-04-02] MEDS: SitaGLIPtin PHOSPHATE 100 MG TABLET PO SCH (08:22)
[2023-04-02] MEDS: BACLOFEN 10 MG TABLET PO SCH ×2 (08:22→20:19)
[2023-04-02] MEDS: AmLODIPine BESYLATE 5 MG TABLET PO SCH ×2 (09:00→20:18)
[2023-04-02] MEDS: FAMOTIDINE 20 MG TABLET PO SCH (10:25)
[2023-04-02] MEDS: SODIUM CHLORIDE 0.9% 1,000 ML IV SCH (10:25)
[2023-04-02 14:56] LABS: GLUCOMETER DEV NAME(LOC) 6N.1; GLUCOSE,POINT OF CARE 156 MG/DL (70-110)
[2023-04-02] MEDS: CefTRIAXone SODIUM 2 GM in DEXTROSE 5%-WATER 50 ML IV SCH (15:50)
[2023-04-02 16:30] VITALS: BP 132/69
[2023-04-02 19:01] LABS: GLUCOMETER DEV NAME(LOC) 6N.1; GLUCOSE,POINT OF CARE 116 MG/DL (70-110)
[2023-04-02 19:29] VITALS: BP 128/72
[2023-04-02] MEDS: TraZODone HCL 100 MG TABLET PO SCH (20:18)
[2023-04-02] MEDS: LISINOPRIL 20 MG TABLET PO SCH (20:19)
[2023-04-02 21:47] LABS: GLUCOMETER DEV NAME(LOC) 6N.2B; GLUCOSE,POINT OF CARE 138 MG/DL (70-110)
[2023-04-03] MEDS: MetroNIDAZOLE 500 MG TABLET PO SCH ×3 (00:09→17:03)
[2023-04-03 04:21] VITALS: BP 134/78
[2023-04-03] MEDS: SODIUM CHLORIDE 0.9% 1,000 ML IV SCH (04:54)
[2023-04-03 05:56] LABS: GLUCOMETER DEV NAME(LOC) 6S.1B; GLUCOSE,POINT OF CARE 116 MG/DL (70-110)
[2023-04-03 07:27] VITALS: BP 143/67
[2023-04-03 07:52] LABS: ANION GAP 9 mmol/L (8-16); CALCIUM, TOTAL 8.2 mg/dL (8.8-10.5); CARBON DIOXIDE 22 mmol/L (22-29); CHLORIDE 104 mmol/L (98-107); CREATININE 1.15 mg/dL (0.60-1.30); GLOMERULAR FILTR. RATE CALC > 60 mL/min (>60); GLUCOSE,RANDOM 122 mg/dL (70-110); POTASSIUM 3.5 mmol/L (3.5-5.1); SODIUM SERUM 135 mmol/L (136-145)
[2023-04-03] MEDS: VANCOMYCIN 1GM/WATER(PEG/NADA) 200 ML IV SCH ×2 (08:34→20:08)
[2023-04-03] MEDS: PIOGLITAZONE HCL 45 MG TABLET PO SCH (08:36)
[2023-04-03] MEDS: MetFORMIN HCL 500 MG TABLET PO SCH ×2 (08:36→20:20)
[2023-04-03] MEDS: AmLODIPine BESYLATE 5 MG TABLET PO SCH ×2 (08:36→20:20)
[2023-04-03] MEDS: ATORVASTATIN CALCIUM 40 MG TABLET PO SCH (08:36)
[2023-04-03] MEDS: FAMOTIDINE 20 MG TABLET PO SCH (08:36)
[2023-04-03] MEDS: DOCUSATE SODIUM 100 MG CAPSULE PO SCH ×2 (08:36→21:00)
[2023-04-03] MEDS: BACLOFEN 10 MG TABLET PO SCH ×2 (08:36→20:19)
[2023-04-03] MEDS: SitaGLIPtin PHOSPHATE 100 MG TABLET PO SCH (08:37)
[2023-04-03] MEDS: APIXABAN 5 MG TABLET PO SCH ×2 (08:37→20:20)
[2023-04-03 15:47] VITALS: BP 128/62
[2023-04-03 16:21] VITALS: BP 132/67
[2023-04-03] MEDS: CefTRIAXone SODIUM 2 GM in DEXTROSE 5%-WATER 50 ML IV SCH (17:03)
[2023-04-03 18:31] LABS: GLUCOMETER DEV NAME(LOC) 6N.1; GLUCOSE,POINT OF CARE 127 MG/DL (70-110)
[2023-04-03 18:31] LABS: GLUCOMETER DEV NAME(LOC) 6S.1B; GLUCOSE,POINT OF CARE 122 MG/DL (70-110)
[2023-04-03 19:46] VITALS: BP 115/51
[2023-04-03] MEDS: TraZODone HCL 100 MG TABLET PO SCH (20:19)
[2023-04-03] MEDS: INSULIN LISPRO 100 UNITS/ML SQ PRN (20:19)
[2023-04-03] MEDS: LISINOPRIL 20 MG TABLET PO SCH (20:20)
[2023-04-03 23:36] LABS: GLUCOMETER DEV NAME(LOC) 6S.1B; GLUCOSE,POINT OF CARE 182 MG/DL (70-110)
[2023-04-04] MEDS: MetroNIDAZOLE 500 MG TABLET PO SCH ×2 (00:08→10:22)
[2023-04-04 04:15] VITALS: BP 135/71
[2023-04-04 06:51] LABS: GLUCOMETER DEV NAME(LOC) 6N.1; GLUCOSE,POINT OF CARE 110 MG/DL (70-110)
[2023-04-04 07:23] VITALS: BP 132/71
[2023-04-04] MEDS: VANCOMYCIN 1GM/WATER(PEG/NADA) 200 ML IV SCH (07:45)
[2023-04-04] MEDS: DOCUSATE SODIUM 100 MG CAPSULE PO SCH (07:51)
[2023-04-04 08:10] LABS: ANION GAP 12 mmol/L (8-16); CALCIUM, TOTAL 8.3 mg/dL (8.8-10.5); CARBON DIOXIDE 21 mmol/L (22-29); CHLORIDE 105 mmol/L (98-107); CREATININE 1.06 mg/dL (0.60-1.30); GLOMERULAR FILTR. RATE CALC > 60 mL/min (>60); GLUCOSE,RANDOM 110 mg/dL (70-110); POTASSIUM 3.5 mmol/L (3.5-5.1); SODIUM SERUM 138 mmol/L (136-145)
[2023-04-04] MEDS: SitaGLIPtin PHOSPHATE 100 MG TABLET PO SCH (10:20)
[2023-04-04] MEDS: PIOGLITAZONE HCL 45 MG TABLET PO SCH (10:20)
[2023-04-04] MEDS: BACLOFEN 10 MG TABLET PO SCH (10:21)
[2023-04-04] MEDS: APIXABAN 5 MG TABLET PO SCH (10:21)
[2023-04-04] MEDS: MetFORMIN HCL 500 MG TABLET PO SCH (10:21)
[2023-04-04] MEDS: FAMOTIDINE 20 MG TABLET PO SCH (10:21)
[2023-04-04] MEDS: AmLODIPine BESYLATE 5 MG TABLET PO SCH (10:22)
[2023-04-04] MEDS: ATORVASTATIN CALCIUM 40 MG TABLET PO SCH (10:22)
[2023-04-04] MEDS: OxyCODONE HCL/ACETAMINOPHEN 5-325 MG TABLET PO PRN (13:45)
[2023-04-04] MEDS ORDERED: APIX5TAB PO ×3 (14:15→14:27)
[2023-04-04] MEDS ORDERED: FAMO20TA8 PO (14:25)
[2023-04-04 18:21] LABS: GLUCOMETER DEV NAME(LOC) 6N.2B; GLUCOSE,POINT OF CARE 128 MG/DL (70-110)
[2023-04-05] MEDS ORDERED: VANCOMYCIN HCL 750 MG in DEXTROSE 5%-WATER 250 ML IV SCH (08:00)
[2023-04-09] MEDS ORDERED: APIXABAN 5 MG TABLET PO SCH (09:00)
== END 2023-04-04 15:31 | DRG 182 ==
LOC: EMS 10:22 → 6N 18:49
PROVIDERS: ADMIT Internal Medicine; ATTEND Internal Medicine
PROC: 0QBQ0ZX Excision of Right Toe Phalanx, Open Approach, Diagnostic (ICD-10-PCS; 2023-03-24)
PROC: 047K3Z1 Dilation of Right Femoral Artery using Drug-Coated Balloon, Percutaneous Approach (ICD-10-PCS; principal; 2023-03-28)
PROC: 047T3ZZ Dilation of Right Peroneal Artery, Percutaneous Approach (ICD-10-PCS; 2023-03-28)
PROC: 047P3ZZ Dilation of Right Anterior Tibial Artery, Percutaneous Approach (ICD-10-PCS; 2023-03-28)
PROC: B41D1ZZ Fluoroscopy of Aorta and Bilateral Lower Extremity Arteries using Low Osmolar Contrast (ICD-10-PCS; 2023-03-28)
PROC: 3E05317 Introduction of Other Thrombolytic into Peripheral Artery, Percutaneous Approach (ICD-10-PCS; 2023-03-29)
PROC: B41G1ZZ Fluoroscopy of Left Lower Extremity Arteries using Low Osmolar Contrast (ICD-10-PCS; 2023-03-29)
PROC: B41F1ZZ Fluoroscopy of Right Lower Extremity Arteries using Low Osmolar Contrast (ICD-10-PCS; 2023-03-29)
PROC: 02HV33Z Insertion of Infusion Device into Superior Vena Cava, Percutaneous Approach (ICD-10-PCS; 2023-03-30)
DX: E11.51 Type 2 diabetes mellitus with diabetic peripheral angiopathy without gangrene (principal); N17.9 Acute kidney failure, unspecified; E44.0 Moderate protein-calorie malnutrition; E11.621 Type 2 diabetes mellitus with foot ulcer; E11.40 Type 2 diabetes mellitus with diabetic neuropathy, unspecified; L03.115 Cellulitis of right lower limb; I80.8 Phlebitis and thrombophlebitis of other sites; E11.69 Type 2 diabetes mellitus with other specified complication; M86.8X7 Other osteomyelitis, ankle and foot; I10 Essential (primary) hypertension; E78.00 Pure hypercholesterolemia, unspecified; Z20.822 Contact with and (suspected) exposure to COVID-19; L97.516 Non-pressure chronic ulcer of other part of right foot with bone involvement without evidence of necrosis; Z79.82 Long term (current) use of aspirin; Z79.899 Other long term (current) drug therapy; Z79.84 Long term (current) use of oral hypoglycemic drugs; Z79.4 Long term (current) use of insulin; Z83.3 Family history of diabetes mellitus; Z68.25 Body mass index [BMI] 25.0-25.9, adult
CPT/HCPCS: 36200; 36245; 36569; 71045; 73720; 75630; 75716; 75962; 76937; 80048; 80053; 80202; 81001; 82962; 83605; 83690; 84145; 84484; 85025; 85610; 85651; 85730; 86140; 87040; 87070; 87081; 87101; 87205; 88307; 88311; 93005; 93925; 93971; 97116; 97161; 97165; 97530; 97535; 99285; C2623; J0153; J0696; J1644; J2250; J2270; J2405; J2704; J2997; J3010; J3370; J3490; J7030; J7040; J7050; J7060; J7120; Q9967; 36415-L1; 36415-TC; Z7610

== ENCOUNTER 2023-04-26 14:11 | Inpatient (IN) | payer OTHER ==
[~2023-04-26] VITALS: Ht 170.2 cm; Wt 66.8 kg
[~2023-04-26 14:11] MED LIST: APIX5TAB PO; BACL10TA PO; FAMO20TA8 PO; INSLAN SQ; LISI20TA24 PO; METF-446 PO; PIOG45TA64 PO; SIMV-43 PO; SITA100 PO; TRAZ-257 PO
[2023-04-26 15:04] LABS: BASOPHILS % (AUTO) 0.5 % (0.0-2.0); EOSINOPHILS % (AUTO) 0.4 % (1.0-6.0); HEMATOCRIT 32.3 % (41-53); HEMOGLOBIN 10.6 g/dL (13.5-17.5); LYMPHOCYTES # (AUTO) 1.3 K/uL (1.0-4.8); LYMPHOCYTES % (AUTO) 15.6 % (22.0-44.0); MEAN CORPUSCULAR HEMOGLOBIN 26.2 pg (26.0-34.0); MEAN CORPUSCULAR HGB CONC 32.9 G/dL (31.0-37.0); MEAN CORPUSCULAR VOLUME 80 fL (80-100); MONOCYTES # (AUTO) 0.6 K/uL (0.1-1.0); MONOCYTES % (AUTO) 6.8 % (2.0-9.0); NEUTROPHILS # (AUTO) 6.5 K/uL (1.8-7.7); NEUTROPHILS % (AUTO) 76.7 % (40.0-70.0); PLATELET COUNT (AUTO) 261 K/uL (150-450); RED BLOOD CELL COUNT(AUTO) 4.06 MIL/uL (4.50-5.90); RED CELL DISTRIBUTION WIDTH 20.7 % (11.5-14.5)
[2023-04-26 15:17] LABS: INR 1.1 (0.9-1.1); PROTHROMBIN TIME 11.4 SEC (9.4-11.6)
[2023-04-26] MEDS ORDERED: GADOTERATE MEGLUMINE 10 MMOL/20 ML VIAL IVP ONE (15:28)
[2023-04-26 15:30] LABS: CALCIUM, TOTAL 9.3 mg/dL (8.8-10.5); CREATININE 1.25 mg/dL (0.60-1.30); POTASSIUM 3.6 mmol/L (3.5-5.1)
[2023-04-26 15:37] LABS: ALBUMIN 3.7 g/dL (3.4-5.0); BILIRUBIN,TOTAL 0.2 mg/dL (0.1-1.0); C-REACTIVE PROTEIN QUANT 0.11 mg/dL (0.00-0.30); TOTAL PROTEIN, SERUM 8.3 g/dL (6.4-8.2)
[2023-04-26 15:56] LABS: PLATELET MORPHOLOGY COMMENT LARGE PLTS PRESENT
[2023-04-26 15:59] LABS: COVID AG,FIA SOURCE NASAL SWAB
[2023-04-26 16:38] LABS: ERYTHROCYTE SEDIMENTATION RATE 48 MM/HR (0-15)
[2023-04-26] MEDS ORDERED: ZOLPIDEM TARTRATE 5 MG TABLET PO PRN (17:30)
[2023-04-26] MEDS ORDERED: IPRATROPIUM BROMIDE 0.5 MG/2.5 ML NEB SOLUTION NEB PRN (17:30)
[2023-04-26] MEDS ORDERED: ONDANSETRON HCL 4 MG/2 ML VIAL IVP PRN (17:30)
[2023-04-26] MEDS ORDERED: BISACODYL 10 MG RECTAL RECTAL SUPPOSITORY PR PRN (17:30)
[2023-04-26] MEDS ORDERED: MAGNESIUM HYDROXIDE SUSPENSION 30 ML UDCUP PO PRN (17:30)
[2023-04-26] MEDS ORDERED: ACETAMINOPHEN 325 MG TABLET PO PRN (17:30)
[2023-04-26] MEDS ORDERED: ALBUTEROL SULFATE 2.5 MG/0.5 ML NEB SOLUTION NEB PRN (17:30)
[2023-04-26 18:31] LABS: GLUCOMETER DEV NAME(LOC) ER.6; GLUCOSE,POINT OF CARE 158 MG/DL (70-110)
[2023-04-26] MEDS: MORPHINE SULFATE 2 MG/ML SYRINGE IVP PRN (18:41)
[2023-04-26] MEDS ORDERED: TraZODone HCL 50 MG TABLET PO SCH (21:00)
[2023-04-26] MEDS: SIMVASTATIN 20 MG TABLET PO SCH (21:00)
[2023-04-26] MEDS: TraZODone HCL 100 MG TABLET PO SCH (22:30)
[2023-04-27] VITALS (14 sets, daily range): BP systolic 129–171; BP diastolic 55–83
[2023-04-27] MEDS ORDERED: RINGERS SOLUTION,LACTATED 1,000 ML IV ONE ×2 (06:00→06:08)
[2023-04-27] MEDS ORDERED: POVIDONE-IODINE 10% 15 ML SOLUTION UD ONE (06:43)
[2023-04-27] MEDS ORDERED: BACITRACIN 28 GM OINTMENT TP ONE (06:43)
[2023-04-27] MEDS ORDERED: BUPIVACAINE HCL 0.25% 50 ML VIAL ONE (06:43)
[2023-04-27] MEDS ORDERED: LIDOCAINE/PF 1% 30 ML VIAL ONE (06:43)
[2023-04-27] MEDS ORDERED: SODIUM CL IRRIG SOLN BAG 3,000 ML IRRIG ONE (06:43)
[2023-04-27 07:00] LABS: GLUCOMETER DEV NAME(LOC) SDS.; GLUCOSE,POINT OF CARE 177 MG/DL (70-110)
[2023-04-27] MEDS ORDERED: ETHYL ALCOHOL 62% ANTISEPTIC NASAL SANITIZER 0.6 ML AMPUL NASAL ONE (07:00)
[2023-04-27] MEDS ORDERED: BUPIVACAINE HCL/PF 0.25% 30 ML VIAL PERC ONE (07:30)
[2023-04-27] MEDS ORDERED: LIDOCAINE 1% 10 ML VIAL PERC ONE (07:30)
[2023-04-27] MEDS ORDERED: HYDROmorphone HCL 2 MG/ML SYRINGE IVP PRN (07:45)
[2023-04-27] MEDS ORDERED: FentaNYL CITRATE PF 100 MCG/2 ML VIAL IVP PRN (07:45)
[2023-04-27] MEDS: OXYGEN THERAPY IH SCH (08:00)
[2023-04-27] MEDS: LISINOPRIL 20 MG TABLET PO SCH (09:32)
[2023-04-27] MEDS: HEPARIN SODIUM,PORCINE 5,000 UNITS/ML VIAL SQ SCH ×4 (09:32→23:51)
[2023-04-27] MEDS: PANTOPRAZOLE SODIUM 40 MG DR TABLET PO SCH (09:32)
[2023-04-27] MEDS: FAMOTIDINE 20 MG TABLET PO SCH (09:33)
[2023-04-27] MEDS: SitaGLIPtin PHOSPHATE 100 MG TABLET PO SCH (12:14)
[2023-04-27] MEDS: PIOGLITAZONE HCL 45 MG TABLET PO SCH (12:14)
[2023-04-27] MEDS ORDERED: SODIUM CHLORIDE 0.9% 250 ML IV ONE (12:16)
[2023-04-27 12:26] LABS: GLUCOMETER DEV NAME(LOC) 5N.2C; GLUCOSE,POINT OF CARE 129 MG/DL (70-110)
[2023-04-27] MEDS ORDERED: VANCOMYCIN 1GM/WATER(PEG/NADA) 200 ML IV ONE (13:00)
[2023-04-27] MEDS: PIPERACILLIN/TAZO 3.375 GM/D5W 50 ML IV SCH ×3 (13:18→23:51)
[2023-04-27] MEDS: HYDROCODONE/ACETAMINOPHEN 5-325 MG TABLET PO PRN (17:29)
[2023-04-27] MEDS ORDERED: VANCOMYCIN HCL 750 MG in DEXTROSE 5%-WATER 250 ML IV SCH (20:00)
[2023-04-27 20:36] LABS: GLUCOMETER DEV NAME(LOC) 5S.1B; GLUCOSE,POINT OF CARE 177 MG/DL (70-110)
[2023-04-27] MEDS: TraZODone HCL 100 MG TABLET PO SCH (21:00)
[2023-04-27] MEDS: SIMVASTATIN 20 MG TABLET PO SCH (21:07)
[2023-04-27] MEDS: MORPHINE SULFATE 2 MG/ML SYRINGE IVP PRN (22:54)
[2023-04-28] VITALS (15 sets, daily range): BP systolic 124–183; BP diastolic 67–81
[2023-04-28] MEDS: MORPHINE SULFATE 2 MG/ML SYRINGE IVP PRN ×4 (04:05→18:27)
[2023-04-28 04:56] LABS: GLUCOMETER DEV NAME(LOC) 5N.2C; GLUCOSE,POINT OF CARE 231 MG/DL (70-110)
[2023-04-28] MEDS: PIPERACILLIN/TAZO 3.375 GM/D5W 50 ML IV SCH ×4 (05:38→23:52)
[2023-04-28] MEDS ORDERED: PROPOFOL 1% 20 ML VIAL IVP ONE (06:27)
[2023-04-28] MEDS ORDERED: FentaNYL CITRATE PF 100 MCG/2 ML VIAL IVP ONE ×4 (06:27→13:45)
[2023-04-28] MEDS ORDERED: LIDOCAINE/PF 2% 5 ML VIAL IM ONE (06:27)
[2023-04-28] MEDS ORDERED: ONDANSETRON HCL 4 MG/2 ML VIAL IVP ONE (06:27)
[2023-04-28] MEDS ORDERED: KETAMINE HCL 50 MG/ML 10 ML VIAL IVP ONE (06:27)
[2023-04-28] MEDS ORDERED: MIDAZOLAM HCL 2 MG/2 ML VIAL IVP ONE ×4 (06:27→13:45)
[2023-04-28 07:07] LABS: ANION GAP 12 mmol/L (8-16); CALCIUM, TOTAL 8.6 mg/dL (8.8-10.5); CARBON DIOXIDE 25 mmol/L (22-29); CHLORIDE 103 mmol/L (98-107); CREATININE 0.85 mg/dL (0.60-1.30); GLOMERULAR FILTR. RATE CALC > 60 mL/min (>60); GLUCOSE,RANDOM 155 mg/dL (70-110); POTASSIUM 3.2 mmol/L (3.5-5.1); SODIUM SERUM 140 mmol/L (136-145)
[2023-04-28] MEDS: OXYGEN THERAPY IH SCH (08:00)
[2023-04-28] MEDS: SitaGLIPtin PHOSPHATE 100 MG TABLET PO SCH (08:04)
[2023-04-28] MEDS: PIOGLITAZONE HCL 45 MG TABLET PO SCH (08:04)
[2023-04-28] MEDS: LISINOPRIL 20 MG TABLET PO SCH (08:04)
[2023-04-28] MEDS: PANTOPRAZOLE SODIUM 40 MG DR TABLET PO SCH (08:04)
[2023-04-28] MEDS: HEPARIN SODIUM,PORCINE 5,000 UNITS/ML VIAL SQ SCH ×3 (08:04→23:53)
[2023-04-28] MEDS: FAMOTIDINE 20 MG TABLET PO SCH (08:04)
[2023-04-28] MEDS: VANCOMYCIN 1GM/WATER(PEG/NADA) 200 ML IV SCH ×2 (08:08→20:29)
[2023-04-28] MEDS ORDERED: POTASSIUM CHLORIDE 20 MEQ ER TABLET PO ONE (12:00)
[2023-04-28] MEDS ORDERED: IODIXANOL 320 MG/ML 150 ML VIAL ONE (12:42)
[2023-04-28] MEDS ORDERED: LIDOCAINE/PF 1% 30 ML VIAL ONE (12:42)
[2023-04-28] MEDS ORDERED: IODIXANOL 320 MG/ML 100 ML VIAL ONE (12:42)
[2023-04-28] MEDS ORDERED: IODIXANOL 320 MG/ML 50 ML VIAL ONE (12:42)
[2023-04-28] MEDS ORDERED: SODIUM BICARBONATE 50 MEQ/50 ML VIAL ONE (12:42)
[2023-04-28] MEDS ORDERED: HEPARIN SODIUM 1000 UNITS/NS 1,000 ML ONE (12:42)
[2023-04-28 13:11] LABS: GLUCOMETER DEV NAME(LOC) 5S.1B; GLUCOSE,POINT OF CARE 150 MG/DL (70-110)
[2023-04-28 13:11] LABS: GLUCOMETER DEV NAME(LOC) 5S.1B; GLUCOSE,POINT OF CARE 144 MG/DL (70-110)
[2023-04-28] MEDS ORDERED: MIDAZOLAM HCL 2 MG/2 ML VIAL ONE ×2 (13:19→13:37)
[2023-04-28] MEDS ORDERED: FentaNYL CITRATE PF 100 MCG/2 ML VIAL ONE ×2 (13:19→13:37)
[2023-04-28] MEDS ORDERED: HEPARIN SODIUM,PORCINE 1,000 UNITS/ML 10 ML VIAL IVP ONE (13:30)
[2023-04-28] MEDS ORDERED: HEPARIN SODIUM 1000 UNITS/NS 500 ML IARTER ONE (13:30)
[2023-04-28] MEDS ORDERED: IODIXANOL 320 MG/ML 50 ML VIAL IARTER ONE (13:30)
[2023-04-28] MEDS ORDERED: LIDOCAINE 1% 30 ML/SOD BICARB 8.4% 4 ML SQ ONE (13:30)
[2023-04-28] MEDS ORDERED: GLUCAGON,HUMAN RECOMBINANT 1 MG VIAL IM PRN (17:30)
[2023-04-28] MEDS ORDERED: DEXTROSE 50%-WATER 25 GM/50 ML SYRINGE IVP PRN (17:30)
[2023-04-28] MEDS ORDERED: INSULIN LISPRO 100 UNITS/ML SQ PRN (17:30)
[2023-04-28 17:36] LABS: GLUCOMETER DEV NAME(LOC) 5S.1B; GLUCOSE,POINT OF CARE 193 MG/DL (70-110)
[2023-04-28] MEDS: TraZODone HCL 100 MG TABLET PO SCH (20:29)
[2023-04-28] MEDS: SIMVASTATIN 20 MG TABLET PO SCH (20:29)
[2023-04-28] MEDS: INSULIN LISPRO 100 UNITS/ML SQ PRN (21:07)
[2023-04-29 00:18] VITALS: BP 132/69
[2023-04-29 04:53] VITALS: BP 138/56
[2023-04-29 06:01] LABS: GLUCOMETER DEV NAME(LOC) 5S.1B; GLUCOSE,POINT OF CARE 250 MG/DL (70-110)
[2023-04-29] MEDS: PIPERACILLIN/TAZO 3.375 GM/D5W 50 ML IV SCH ×4 (06:05→23:38)
[2023-04-29] MEDS: INSULIN LISPRO 100 UNITS/ML SQ PRN ×4 (06:12→20:18)
[2023-04-29 06:32] LABS: ANION GAP 8 mmol/L (8-16); CALCIUM, TOTAL 8.6 mg/dL (8.8-10.5); CARBON DIOXIDE 26 mmol/L (22-29); CHLORIDE 102 mmol/L (98-107); GLOMERULAR FILTR. RATE CALC > 60 mL/min (>60); GLUCOSE,RANDOM 317 mg/dL (70-110); POTASSIUM 3.9 mmol/L (3.5-5.1); SODIUM SERUM 136 mmol/L (136-145); VANCOMYCIN,RANDOM 21.7 mcg/mL (25.0-50.0)
[2023-04-29 07:01] LABS: GLUCOMETER DEV NAME(LOC) 5S.1B; GLUCOSE,POINT OF CARE 303 MG/DL (70-110)
[2023-04-29 07:46] VITALS: BP 143/81
[2023-04-29] MEDS: LISINOPRIL 20 MG TABLET PO SCH (08:59)
[2023-04-29] MEDS: VANCOMYCIN 1GM/WATER(PEG/NADA) 200 ML IV SCH (08:59)
[2023-04-29] MEDS: HEPARIN SODIUM,PORCINE 5,000 UNITS/ML VIAL SQ SCH ×3 (08:59→23:37)
[2023-04-29] MEDS: PANTOPRAZOLE SODIUM 40 MG DR TABLET PO SCH (08:59)
[2023-04-29] MEDS: PIOGLITAZONE HCL 45 MG TABLET PO SCH (08:59)
[2023-04-29] MEDS: SitaGLIPtin PHOSPHATE 100 MG TABLET PO SCH (08:59)
[2023-04-29] MEDS: FAMOTIDINE 20 MG TABLET PO SCH (08:59)
[2023-04-29] MEDS: OXYGEN THERAPY IH SCH (09:00)
[2023-04-29] MEDS: POVIDONE-IODINE 10% 120 ML SOLUTION TP SCH (09:02)
[2023-04-29] MEDS: HYDROCODONE/ACETAMINOPHEN 5-325 MG TABLET PO PRN ×2 (09:52→16:05)
[2023-04-29 11:35] VITALS: BP 139/72
[2023-04-29 12:41] LABS: GLUCOMETER DEV NAME(LOC) 5S.2C; GLUCOSE,POINT OF CARE 152 MG/DL (70-110)
[2023-04-29] MEDS ORDERED: INSULIN GLARGINE,HUM.REC.ANLOG 100 UNITS/ML SQ ONE (13:45)
[2023-04-29 15:51] VITALS: BP 129/73
[2023-04-29 17:51] LABS: GLUCOMETER DEV NAME(LOC) 5N.2C; GLUCOSE,POINT OF CARE 235 MG/DL (70-110)
[2023-04-29 19:57] VITALS: BP 131/69
[2023-04-29] MEDS: SIMVASTATIN 20 MG TABLET PO SCH (20:10)
[2023-04-29] MEDS: TraZODone HCL 100 MG TABLET PO SCH (20:10)
[2023-04-29] MEDS: INSULIN GLARGINE,HUM.REC.ANLOG 100 UNITS/ML SQ SCH (20:15)
[2023-04-29 21:26] LABS: GLUCOMETER DEV NAME(LOC) 5S.1B; GLUCOSE,POINT OF CARE 259 MG/DL (70-110)
[2023-04-29] MEDS: MORPHINE SULFATE 2 MG/ML SYRINGE IVP PRN (23:37)
[2023-04-30] VITALS (7 sets, daily range): BP systolic 117–141; BP diastolic 64–69
[2023-04-30] MEDS ORDERED: MAGNESIUM SULFATE 2 GM/WATER 50 ML IV PRN
[2023-04-30] MEDS ORDERED: POTASSIUM CHL 10 MEQ/WATER 50 ML IV PRN
[2023-04-30] MEDS ORDERED: MAGNESIUM SULFATE 4 GM/WATER 100 ML IV PRN
[2023-04-30] MEDS ORDERED: POTASSIUM CHLORIDE 20 MEQ ER TABLET PO PRN
[2023-04-30] MEDS ORDERED: MAGNESIUM OXIDE 400 MG TABLET PO PRN
[2023-04-30] MEDS: PIPERACILLIN/TAZO 3.375 GM/D5W 50 ML IV SCH ×2 (05:35→11:55)
[2023-04-30] MEDS: INSULIN LISPRO 100 UNITS/ML SQ PRN ×4 (05:39→20:47)
[2023-04-30 06:55] LABS: BASOPHILS % (AUTO) 0.3 % (0.0-2.0); EOSINOPHILS % (AUTO) 1.4 % (1.0-6.0); HEMOGLOBIN 8.5 g/dL (13.5-17.5); LYMPHOCYTES # (AUTO) 1.5 K/uL (1.0-4.8); LYMPHOCYTES % (AUTO) 20.1 % (22.0-44.0); MEAN CORPUSCULAR HGB CONC 32.8 G/dL (31.0-37.0); MEAN CORPUSCULAR VOLUME 79 fL (80-100); MONOCYTES # (AUTO) 0.8 K/uL (0.1-1.0); MONOCYTES % (AUTO) 10.9 % (2.0-9.0); NEUTROPHILS # (AUTO) 4.9 K/uL (1.8-7.7); NEUTROPHILS % (AUTO) 67.3 % (40.0-70.0); PLATELET COUNT (AUTO) 220 K/uL (150-450); RED BLOOD CELL COUNT(AUTO) 3.29 MIL/uL (4.50-5.90)
[2023-04-30 07:36] LABS: ANION GAP 10 mmol/L (8-16); CARBON DIOXIDE 27 mmol/L (22-29); CHLORIDE 104 mmol/L (98-107); POTASSIUM 3.5 mmol/L (3.5-5.1); SODIUM SERUM 141 mmol/L (136-145)
[2023-04-30 07:37] LABS: GLUCOSE,RANDOM 232 mg/dL (70-110)
[2023-04-30 07:38] LABS: ALANINE AMINOTRANSFERASE 11 U/L (12-78); ALBUMIN 2.7 g/dL (3.4-5.0); ALKALINE PHOSPHATASE 52 U/L (46-116); ASPARTATE AMINOTRANSFERASE 19 U/L (15-37); BILIRUBIN,TOTAL 0.3 mg/dL (0.1-1.0); CREATININE 1.02 mg/dL (0.60-1.30); GLOMERULAR FILTR. RATE CALC > 60 mL/min (>60); TOTAL PROTEIN, SERUM 6.6 g/dL (6.4-8.2)
[2023-04-30] MEDS: HEPARIN SODIUM,PORCINE 5,000 UNITS/ML VIAL SQ SCH ×3 (08:41→23:28)
[2023-04-30] MEDS: PIOGLITAZONE HCL 45 MG TABLET PO SCH (08:41)
[2023-04-30] MEDS: LISINOPRIL 20 MG TABLET PO SCH (08:41)
[2023-04-30] MEDS: HYDROCODONE/ACETAMINOPHEN 5-325 MG TABLET PO PRN (08:41)
[2023-04-30] MEDS: SitaGLIPtin PHOSPHATE 100 MG TABLET PO SCH (08:41)
[2023-04-30] MEDS: PANTOPRAZOLE SODIUM 40 MG DR TABLET PO SCH (08:41)
[2023-04-30] MEDS: FAMOTIDINE 20 MG TABLET PO SCH (08:41)
[2023-04-30] MEDS: OXYGEN THERAPY IH SCH ×2 (08:42→20:10)
[2023-04-30] MEDS: POVIDONE-IODINE 10% 120 ML SOLUTION TP SCH (08:42)
[2023-04-30 08:46] LABS: GLUCOMETER DEV NAME(LOC) 5S.2C; GLUCOSE,POINT OF CARE 237 MG/DL (70-110)
[2023-04-30] MEDS: MORPHINE SULFATE 2 MG/ML SYRINGE IVP PRN ×2 (13:18→19:47)
[2023-04-30] MEDS: MEROPENEM 1 GM in SODIUM CHLORIDE 0.9% 100 ML IV SCH ×2 (16:46→23:25)
[2023-04-30] MEDS ORDERED: SODIUM CHLORIDE 0.9% 500 ML IV ONE (16:49)
[2023-04-30 18:12] LABS: GLUCOMETER DEV NAME(LOC) 5S.2C; GLUCOSE,POINT OF CARE 283 MG/DL (70-110)
[2023-04-30 20:11] LABS: GLUCOMETER DEV NAME(LOC) 5N.2C; GLUCOSE,POINT OF CARE 217 MG/DL (70-110)
[2023-04-30] MEDS: SIMVASTATIN 20 MG TABLET PO SCH (20:39)
[2023-04-30] MEDS: TraZODone HCL 100 MG TABLET PO SCH (20:41)
[2023-04-30] MEDS: INSULIN GLARGINE,HUM.REC.ANLOG 100 UNITS/ML SQ SCH (20:48)
[2023-04-30 21:20] LABS: GLUCOMETER DEV NAME(LOC) 5N.2C; GLUCOSE,POINT OF CARE 217 MG/DL (70-110)
[2023-05-01] MEDS: INSULIN LISPRO 100 UNITS/ML SQ PRN ×4 (05:39→20:34)
[2023-05-01 05:56] LABS: GLUCOMETER DEV NAME(LOC) 5N.1C; GLUCOSE,POINT OF CARE 238 MG/DL (70-110)
[2023-05-01 05:58] VITALS: BP 144/73
[2023-05-01 07:43] VITALS: BP 146/71
[2023-05-01] MEDS: HYDROCODONE/ACETAMINOPHEN 5-325 MG TABLET PO PRN ×3 (08:00→21:09)
[2023-05-01] MEDS: SitaGLIPtin PHOSPHATE 100 MG TABLET PO SCH (08:29)
[2023-05-01] MEDS: MEROPENEM 1 GM in SODIUM CHLORIDE 0.9% 100 ML IV SCH ×3 (08:29→23:48)
[2023-05-01] MEDS: FAMOTIDINE 20 MG TABLET PO SCH (08:29)
[2023-05-01] MEDS: PIOGLITAZONE HCL 45 MG TABLET PO SCH (08:29)
[2023-05-01] MEDS: LISINOPRIL 20 MG TABLET PO SCH (08:29)
[2023-05-01] MEDS: PANTOPRAZOLE SODIUM 40 MG DR TABLET PO SCH (08:29)
[2023-05-01] MEDS: OXYGEN THERAPY IH SCH ×2 (08:30→20:02)
[2023-05-01] MEDS: HEPARIN SODIUM,PORCINE 5,000 UNITS/ML VIAL SQ SCH ×3 (08:30→23:47)
[2023-05-01] MEDS: POVIDONE-IODINE 10% 120 ML SOLUTION TP SCH (08:30)
[2023-05-01 11:18] VITALS: BP 131/69
[2023-05-01 15:24] VITALS: BP 130/65
[2023-05-01 20:28] VITALS: BP 122/60
[2023-05-01] MEDS: TraZODone HCL 100 MG TABLET PO SCH (20:37)
[2023-05-01] MEDS: SIMVASTATIN 20 MG TABLET PO SCH (20:37)
[2023-05-01] MEDS: INSULIN GLARGINE,HUM.REC.ANLOG 100 UNITS/ML SQ SCH (20:40)
[2023-05-01 21:57] LABS: GLUCOMETER DEV NAME(LOC) 5S.2C; GLUCOSE,POINT OF CARE 239 MG/DL (70-110)
[2023-05-02 04:30] VITALS: BP 126/67
[2023-05-02 05:52] LABS: GLUCOMETER DEV NAME(LOC) 5N.1C; GLUCOSE,POINT OF CARE 244 MG/DL (70-110)
[2023-05-02 05:52] LABS: GLUCOMETER DEV NAME(LOC) 5N.1C; GLUCOSE,POINT OF CARE 249 MG/DL (70-110)
[2023-05-02 05:52] LABS: GLUCOMETER DEV NAME(LOC) 5N.1C; GLUCOSE,POINT OF CARE 235 MG/DL (70-110)
[2023-05-02] MEDS: INSULIN LISPRO 100 UNITS/ML SQ PRN ×2 (06:02→11:51)
[2023-05-02 07:57] VITALS: BP 120/60
[2023-05-02] MEDS: HEPARIN SODIUM,PORCINE 5,000 UNITS/ML VIAL SQ SCH (08:38)
[2023-05-02] MEDS: FAMOTIDINE 20 MG TABLET PO SCH (08:38)
[2023-05-02] MEDS: LISINOPRIL 20 MG TABLET PO SCH (08:38)
[2023-05-02] MEDS: MEROPENEM 1 GM in SODIUM CHLORIDE 0.9% 100 ML IV SCH ×2 (08:39→15:14)
[2023-05-02] MEDS: SitaGLIPtin PHOSPHATE 100 MG TABLET PO SCH (08:39)
[2023-05-02] MEDS: HYDROCODONE/ACETAMINOPHEN 5-325 MG TABLET PO PRN ×2 (08:39→14:40)
[2023-05-02] MEDS: PANTOPRAZOLE SODIUM 40 MG DR TABLET PO SCH (08:39)
[2023-05-02] MEDS: PIOGLITAZONE HCL 45 MG TABLET PO SCH (08:39)
[2023-05-02] MEDS: OXYGEN THERAPY IH SCH (08:40)
[2023-05-02] MEDS: POVIDONE-IODINE 10% 120 ML SOLUTION TP SCH (08:41)
[2023-05-02 11:28] VITALS: BP 113/58
[2023-05-02 15:56] VITALS: BP 117/53
[2023-05-02] MEDS ORDERED: INSULIN GLARGINE,HUM.REC.ANLOG 100 UNITS/ML SQ SCH (21:00)
[2023-05-02 23:11] LABS: GLUCOMETER DEV NAME(LOC) 5S.2C; GLUCOSE,POINT OF CARE 228 MG/DL (70-110)
== END 2023-05-02 17:20 | DRG 182 ==
LOC: EMS 14:11 → 5S 19:00
PROVIDERS: ADMIT Hospitalist; ATTEND Hospitalist
PROC: 0Y6X0Z1 Detachment at Right 5th Toe, High, Open Approach (ICD-10-PCS; principal; 2023-04-26)
PROC: 047K3ZZ Dilation of Right Femoral Artery, Percutaneous Approach (ICD-10-PCS; 2023-04-27)
PROC: 047T3ZZ Dilation of Right Peroneal Artery, Percutaneous Approach (ICD-10-PCS; 2023-04-27)
PROC: B41D1ZZ Fluoroscopy of Aorta and Bilateral Lower Extremity Arteries using Low Osmolar Contrast (ICD-10-PCS; 2023-04-27)
DX: E11.52 Type 2 diabetes mellitus with diabetic peripheral angiopathy with gangrene (principal); I70.261 Atherosclerosis of native arteries of extremities with gangrene, right leg; E11.42 Type 2 diabetes mellitus with diabetic polyneuropathy; M86.8X8 Other osteomyelitis, other site; E11.621 Type 2 diabetes mellitus with foot ulcer; L97.519 Non-pressure chronic ulcer of other part of right foot with unspecified severity; L03.031 Cellulitis of right toe; E11.69 Type 2 diabetes mellitus with other specified complication; Z20.822 Contact with and (suspected) exposure to COVID-19; E78.5 Hyperlipidemia, unspecified; I10 Essential (primary) hypertension; E87.6 Hypokalemia; E78.00 Pure hypercholesterolemia, unspecified; Z79.01 Long term (current) use of anticoagulants; Z79.4 Long term (current) use of insulin; Z79.899 Other long term (current) drug therapy; Z79.84 Long term (current) use of oral hypoglycemic drugs; Z83.3 Family history of diabetes mellitus
CPT/HCPCS: 36200; 73720; 75630; 75716; 75962; 80048; 80053; 80202; 82040; 82962; 83735; 85025; 85610; 85651; 85730; 86140; 87040; 87070; 87081; 87186; 87205; 88305; 88311; 93005; 97116; 97161; 97530; 99285; C2623; J0690; J1644; J1815; J2185; J2250; J2270; J2405; J2543; J2704; J3010; J3370; J3490; J7040; J7050; J7060; J7120; Q9967; 36415-L1; 36415-TC